=== PATIENT | female | born 1985 | race Two or more races ===

== ENCOUNTER 2019-05-22 04:40 | Inpatient (IN) | payer OTHER ==
[2019-05-22] MEDS ORDERED: DEXTROSE 5%-LACTATED RINGERS 1,000 ML IV SCH (05:30)
[2019-05-22] MEDS ORDERED: AMPICILLIN SODIUM 2 GM VIAL ONE (05:43)
[2019-05-22] MEDS ORDERED: AMPICILLIN - 2 GM in SODIUM CHLORIDE 100 ML IVPB ONE (05:43)
--- NOTE | 2019-05-22 05:50 | HP ---
Past Medical History - Admission Chief Complaint: Uterine contractions History of Present Illness: 33yo @ 38.4wks by LMP c/w sono here with uterine contractions that began at 3AM. Strong, regular. No VB/LOF. +FM Initially when presented, 75/3/-3, intact, rechecked after 1L IVF bolus, progressed to 100/5/-3, intact Preg c/b GBS positive, obesity PNC @ [address] History Source: Patient Limitations to Obtaining History: No Limitations - Past Medical History BACK TUFTER: No: Alzheimer's, CVA, Dementia, Migraine, Multiple Sclerosis, Peripheral Neuropathy, Parkinson's, Seizure, Syncope, TIA, Vertigo, Other Cardiovascular: No: AFIB, Aneurysm, Aortic Insufficiency, Aortic Stenosis, CAD, CHF, Deep Vein Thrombosis, HTN, Hyperlipdemia, NE, Mitral Insufficiency, Mitral Stenosis, Murmur, Pulmonary Hypertension, Other Pulmonary: No: Asthma, Bronchitis, Cancer, COPD, O2 Dependent, Pneumonia, Previously Intubated, Pulmonary Embolus, Pulmonary Fibrosis, Sleep Apnea, Other Gastrointestinal: No: Ascites, Cancer, Constipation, Crohn's Disease, Diverticulitis, Diverticulosis, Esophageal Varices, Gastritis, GERD, GI Bleed, Hemorrhoids, Hiatal Hernia, Inflamatory Bowel Disease, Irritable Bowel Disease, Pancreatitis, Peptic Ulcer Disease, Ulcerative Colitis, Other Hepatobiliary: No: Cirrhosis, Cholelithiasis, Cholecystitis, Choledocholithiasis , Hepatitis A, Hepatitis B, Hepatitis C, Other Renal/: No: Renal Failure, Renal Inusuff, BPH, Cancer, Hematuria, Hemodialysis , Neurogenic Bladder, Renal Calculi, UTI, Other ...: 3 ...Para: 1 ...Term: 1 ...: 0 ...Spon : 1 ...Induced : 0 ...LMP: 08/23/18 ... Weeks Gestation by Dates: 38.4 ...EDC by Dates: 05/30/19 ...EDC by Sono: 05/26/19 Heme/Onc: No: Anemia, B12 Deficiency, Bleeding Disorder, Cancer, Current Chemotherapy, Current Radiation Therapy, Hemochromatosis, Hypercoaguable State, Myeloproliferative Synd, Sickle Cell Disease, Sickle Cell Trait, Thrombocytopenia, Other Infectious Disease: No: AIDS, C-Diff, Herpes Zoster, HIV, MRSA, STD's, Tuberculosis, VREF, Other Psych: No: Addictions, Anxiety, Bipolar, Depression, Panic, Psychosis, Schizophrenia, Other Musculoskeletal: No: Bursitis, Chronic low back pain, Hemiparesis, Hemiplegia, Osteoarthritis, Paraplegia, Other - Past Surgical History Past Surgical History: Yes: None Hx Myomectomy: No Hx Transabdominal Cerclage: No - Smoking History Smoking history: Never smoked Have you smoked in the past 12 months: No - Social History Usual Living Arrangement: Yes: With Spouse ADL: Independent History of Recent Travel: No Home Medications - Allergies Allergies/Adverse Reactions: Allergies Allergy/AdvReac Type Severity Reaction Status Date / Time No Known Allergies Allergy Verified 05/20/19 13:55 - Home Medications Home Medications: Ambulatory Orders Ferrous Sulfate [Feosol] 325 mg PO DAILY 05/20/19 Pnv No.95/Ferrous Fum/Folic AC [ Vitamin Tablet] 1 each PO DAILY Review of Systems - Review of Systems Cardiovascular: denies: No Symptoms, Chest Pain, Edema, Palpitations, Shortness of Breath, Other Respiratory: denies: No Symptoms, Cough, Exercise Intolerance, Hemoptysis, Orthopnea, PND, Snoring, SOB, SOB on Exertion, Wheezing, Other Gastrointestinal: denies: No Symptoms, Abdominal Pain, Bloating, Constipation, Diarrhea, Dysphagia, Indigestion, Melena, Nausea, Rectal Bleeding, Vomiting, Vomiting Blood, Other Genitourinary: denies: No Symptoms, Burning, Discharge, Dysuria, Flank Pain, Frequency, Hematuria, Incontinence, Lesions, Menses, Pain, Testicular Mass, Testicular Pain, Testicular Swelling, Urgency, Vaginal Bleeding, Other Physical Exam - Maternity Vital Signs: Vital Signs Temperature 98.4 F 05/22/19 04:40 Pulse Rate 78 05/22/19 04:40 Respiratory Rate 20 05/22/19 04:40 Blood Pressure 146/75 05/22/19 04:40 O2 Sat by Pulse Oximetry (%) Constitutional: Yes: Well Nourished, No Distress, Calm Eyes: Yes: WNL, Conjunctiva Clear, EOM Intact HENT: Yes: WNL, Atraumatic, Normocephalic Neck: Yes: WNL, Supple, Trachea Midline Cardiovascular: Yes: WNL, Regular Rate and Rhythm Breast(s): Yes: WNL - Abdominal Exam/OB Number of Fetuses: Single Presentation: Vertex Contractions: Yes Regularity: Irregular Intensity: Mod/Strong Monitor Mode: External Category: I Accelerations: Non-Uniform Decelerations: None - Vaginal Exam/OB Vaginal Bleediing: No Speculum Exam: No Dilatation (cm): 5 Effacement (%): 100 Amniotic Membrane Status: Intact Presentation: Vertex/Position Station: -3 - Physical Exam Edema: No Problem List - Problems (1) Uterine contractions Code(s): [id number] - Assessment/Plan 33yo @ 38.4wks here in labor Admit to L&D IVFs, labs Epidural Amp for GBS AROM when GBS ppx sufficient Anticipate MARY Gavin MD
[2019-05-22 06:09] LABS: BASO % 0.3 % (0-2.0); EOS % 0.4 % (0-4.5); HEMATOCRIT 32.4 % (32.4-45.2); HEMOGLOBIN 10.9 GM/dL (10.7-15.3); LYMPH % 9.7 % (8-40); MCH 31.7 pg (25.7-33.7); MCHC 33.7 g/dl (32.0-36.0); MEAN CELL VOLUME 94.2 fl (80-96); MEAN PLT VOLUME 10.6 fl (7.5-11.1); MONO % 4.4 % (3.8-10.2); NEUT % 85.2 % (42.8-82.8); PLATELET COUNT 157 K/MM3 (134-434); RBC 3.44 M/mm3 (3.60-5.2); WHITE BLOOD COUNT 14.4 K/mm3 (4.0-10.0)
--- NOTE | 2019-05-22 06:23 | PN ---
Progress Note, Labor Vaginal Exam #1 Labor Exam Date: 05/22/19 Labor Exam Time: 06:22 Heart Rate (range): Cat I Dilatation: 6 Effacement (%): 100 Amniotic Membrane Status: Intact Presentation: Vertex/Position Station: -3 Remarks: Pt feeling rectal pressure Awaiting epidural Cont Amp for GBS
[2019-05-22 06:41] LABS: BLOOD UREA NITROGEN 3.9 mg/dL (7-18); CALCIUM 8.3 mg/dL (8.5-10.1); CREATININE 0.7 mg/dL (0.55-1.3); POTASSIUM 3.3 mmol/L (3.5-5.1)
[2019-05-22] MEDS ORDERED: FENTANYL/BUPIVACAINE/NS/PF - PCEA - 50 ML DISP.SYRIN EP ONE (06:55)
[2019-05-22] MEDS ORDERED: OXYTOCIN 20 UNITS in 0.9% NS 20 UNIT/1,000 ML INFUS.BAG IV ONE ×2 (07:00→09:31)
[2019-05-22] MEDS ORDERED: ELECTROLYTE-148 SOLN 1,000 ML IV SCH (07:00)
[2019-05-22 07:02] LABS: INR 1.07 (0.83-1.09); PROTHROMBIN TIME (PATIENT) 12.6 SEC (9.7-13.0)
[2019-05-22 07:05] LABS: ACTIVATED PTT 30.5 SECONDS (25.2-36.5)
[2019-05-22] MEDS ORDERED: NALOXONE HCL 0.4 MG/ML VIAL IVPUSH PRN (07:11)
[2019-05-22 07:12] VITALS: BMI 35.6
--- NOTE | 2019-05-22 07:15 | PN ---
Progress Note, Labor Vaginal Exam #2 Labor Exam Date: 05/22/19 Labor Exam Time: 07:15 Heart Rate (range): Cat I Dilatation: 10 Effacement (%): 100 Amniotic Membrane Status: Ruptured Presentation: Vertex/Position Station: +1 Remarks: Pt c/o increased pressure Complete Start pushing Anticipate MARY Gavin MD
[2019-05-22] MEDS ORDERED: LIDOCAINE HCL 1% PRESERVATIVE FREE - 30ML VIAL ONE (07:31)
[2019-05-22] MEDS: OXYTOCIN 20 UNITS in 0.9% NS 20 UNIT/1,000 ML INFUS.BAG IV SCH ×2 (07:40→09:40)
[2019-05-22] MEDS ORDERED: BENZOCAINE 20% 57 GM BOTTLE TP PRN (07:44)
[2019-05-22] MEDS ORDERED: BISACODYL 10 MG SUPP.RECT RC PRN (07:44)
[2019-05-22] MEDS ORDERED: WITCH HAZEL 50% (TUCKS) 40 PAD/JAR PAD TP PRN (07:44)
[2019-05-22] MEDS ORDERED: METHYLERGONOVINE MALEATE 0.2 MG/1 ML AMP IM PRN (07:44)
[2019-05-22] MEDS ORDERED: BENZOCAINE 28 GM HEMORRHOIDAL OINTMENT TP PRN (07:44)
--- NOTE | 2019-05-22 07:44 | PN ---
Delivery - Delivery Vaginal Delivery: Spontaneous Type of Anesthesia: Local Episiotomy/Laceration: Midline, 1st degree EBL (cc): 250 Delivery, Single - Stages of Labor Placenta: Yes: Spontaneous - Condition of Burn Out [employer] Consultant Present: No Gender: Male Position: Left, OA - 1 Minute Total Score: 9 5 Minutes Total Score: 9 - Feeding Plan Initial Plan: Elected not to breastfeed exclusively throughout hospitalization Remarks - Remarks Remarks: of VMI from JOLENE position over intact perineum. No nuchal. No meconium. Spontaneous delivery of anterior shoulder. placed on maternal abdomen. Cord clamped and cut. Infant handed off to staff. Apgars 9/9. Weight pending. Spontaneous delivery of intact placenta, 3VC. Fundus firm. Perineum inspected, 1st degree laceration repaired with 2-0 chromic after 10cc of 1% lidocaine injected. Hemostasis achieved. EBL 250ml. Mother and baby doing well/ Roxie Gavin MD
[2019-05-22] MEDS: FENTANYL/BUPIVACAINE/NS/PF - PCEA - 50 ML DISP.SYRIN EP SCH (07:57)
[2019-05-22] MEDS: IBUPROFEN 600 MG TABLET (FP) PO PRN ×3 (09:41→21:42)
[2019-05-22] MEDS: ACETAMINOPHEN 325 MG TABLET (FP) PO PRN ×3 (09:42→21:43)
[2019-05-22] MEDS ORDERED: IBUPROFEN 600 MG TABLET (FP) PO ONE (09:43)
[2019-05-22] MEDS ORDERED: ACETAMINOPHEN 325 MG TABLET (FP) ONE (09:43)
[2019-05-22] MEDS: PRENATAL VITAMINS W/ FOLIC ACID TABLET (FP) PO SCH (10:15)
[2019-05-22] MEDS: AMPICILLIN - 1 GM in SODIUM CHLORIDE 100 ML IVPB SCH ×3 (11:56→17:54)
[2019-05-23 07:43] LABS: BASO % 0.2 % (0-2.0); EOS % 0.5 % (0-4.5); HEMATOCRIT 30.1 % (32.4-45.2); HEMOGLOBIN 9.8 GM/dL (10.7-15.3); LYMPH % 11.9 % (8-40); MCH 31.1 pg (25.7-33.7); MCHC 32.6 g/dl (32.0-36.0); MEAN CELL VOLUME 95.4 fl (80-96); NEUT % 82.4 % (42.8-82.8); RBC 3.16 M/mm3 (3.60-5.2); RDW 13.9 % (11.6-15.6); WHITE BLOOD COUNT 16.3 K/mm3 (4.0-10.0)
[2019-05-23 08:41] LABS: PLATELET COUNT 160 K/MM3 (134-434)
--- NOTE | 2019-05-23 09:00 | PN ---
Post Progress Note Post Day: 1 Type of Delivery: Vital Signs: Vital Signs Temperature 98.1 F 05/23/19 06:00 Pulse Rate 69 05/23/19 06:00 Respiratory Rate 18 05/23/19 06:00 Blood Pressure 106/68 05/23/19 06:00 O2 Sat by Pulse Oximetry (%) 100 05/22/19 09:00 Uterus: Yes: Fundus below umbilicus Abdomen/GI: Yes: Abdomen soft, Passing flatus Lochia: Yes: Rubra Lochia, amount: Small Extremities: Yes: Calves non-tender Perineum: Yes: Laceration Activity: Ambulating - Labs Labs: CBC WBC 16.3 K/mm3 (4.0-10.0) H 05/23/19 06:20 RBC 3.16 M/mm3 (3.60-5.2) L 05/23/19 06:20 Hgb 9.8 GM/dL (10.7-15.3) L 05/23/19 06:20 Hct 30.1 % (32.4-45.2) L 05/23/19 06:20 MCV 95.4 fl (80-96) 05/23/19 06:20 MCH 31.1 pg (25.7-33.7) 05/23/19 06:20 MCHC 32.6 g/dl (32.0-36.0) 05/23/19 06:20 RDW 13.9 % (11.6-15.6) 05/23/19 06:20 Plt Count 160 K/MM3 (134-434) 05/23/19 06:20 MPV 11.0 fl (7.5-11.1) 05/23/19 06:20 Absolute Neuts (auto) 13.4 K/mm3 (1.5-8.0) H 05/23/19 06:20 Neutrophils % 82.4 % (42.8-82.8) 05/23/19 06:20 Lymphocytes % 11.9 % (8-40) D 05/23/19 06:20 Monocytes % 5.0 % (3.8-10.2) 05/23/19 06:20 Eosinophils % 0.5 % (0-4.5) 05/23/19 06:20 Basophils % 0.2 % (0-2.0) 05/23/19 06:20 Nucleated RBC % 0 % (0-0) 05/23/19 06:20 Problem List - Problems (1) Uterine contractions Code(s): [id number] - Assessment/Plan 33yo s/p , PPD#1 Routine PP care OOB. ambulate Labs reviewed Anticipate d/c to home PPD#2 Filiberto Gavin MD
[2019-05-23] MEDS: PRENATAL VITAMINS W/ FOLIC ACID TABLET (FP) PO SCH (10:26)
[2019-05-23] MEDS ORDERED: DIPHTH,PERTUSS(ACELL),TET 0.5 ML DISP.SYRIN IM ONE (12:00)
[2019-05-23] MEDS: FENTANYL/BUPIVACAINE/NS/PF - PCEA - 50 ML DISP.SYRIN EP SCH (15:31)
[2019-05-23] MEDS: ACETAMINOPHEN 325 MG TABLET (FP) PO PRN (16:23)
[2019-05-23] MEDS: IBUPROFEN 600 MG TABLET (FP) PO PRN (16:23)
[2019-05-23] MEDS ORDERED: SENNOSIDES/DOCUSATE COMBO (SENNA PLUS) TABLET (UD) PO PRN (22:00)
[2019-05-24] MEDS: IBUPROFEN 600 MG TABLET (FP) PO PRN (05:28)
[2019-05-24] MEDS: ACETAMINOPHEN 325 MG TABLET (FP) PO PRN (05:29)
[2019-05-24 08:43] VITALS: BP 126/71; PULSE 73; TEMP 98.5
[2019-05-24] MEDS: PRENATAL VITAMINS W/ FOLIC ACID TABLET (FP) PO SCH (09:23)
--- NOTE | 2019-05-24 10:35 | DS ---
Physical Examination Vital Signs: Vital Signs Temperature 98.5 F 05/24/19 08:00 Pulse Rate 73 05/24/19 08:00 Respiratory Rate 18 05/24/19 08:00 Blood Pressure 126/71 05/24/19 08:00 O2 Sat by Pulse Oximetry (%) 100 05/22/19 09:00 Constitutional: Yes: Well Nourished, No Distress, Calm Eyes: Yes: WNL, Conjunctiva Clear, EOM Intact HENT: Yes: WNL, Atraumatic, Normocephalic Neck: Yes: WNL, Supple, Trachea Midline Cardiovascular: Yes: WNL, Regular Rate and Rhythm Respiratory: Yes: WNL, Regular, CTA Bilaterally Gastrointestinal: Yes: WNL, Normal Bowel Sounds Musculoskeletal: Yes: WNL Extremities: Yes: WNL Edema: No Integumentary: Yes: WNL Neurological: Yes: WNL, Alert, Oriented ...Motor Strength: WNL Psychiatric: Yes: WNL Labs: CBC, BMP 05/23/19 06:20 05/22/19 05:50 Discharge Summary Reason For Visit: LABOR ASSESS Current Active Problems Uterine contractions (Acute) Procedures: Principal: Hospital Course: Patient presented in active labor She had an uncomplicated She met all milestones She was discharged home on PPD#2 Roxie Gavin MD Condition: Stable - Instructions Diet, Activity, Other Instructions: Regular Diet Follow up in 4-6 weeks for your visit HRH: [phone] If fever, pain, or heavy bleeding call M.D. Referrals: Evie Vaughn CNM [Certified Nurse [employer]] - Disposition: HOME - Home Medications Comprehensive Discharge Medication List: Ambulatory Orders Ferrous Sulfate [Feosol] 325 mg PO DAILY 05/20/19 Pnv No.95/Ferrous Fum/Folic AC [ Vitamin Tablet] 1 each PO DAILY Ibuprofen 600 mg PO Q6H PRN #30 tablet 05/22/19
== END 2019-05-24 15:45 | disposition home or self-care (01) | DRG 560 ==
LOC: JDEL 04:40 → JLDR 05:45 → J3W 10:15
PROVIDERS: ADMIT Obstetrics & Gynecology; ATTEND Obstetrics & Gynecology
PROC: 0HQ9XZZ Repair Perineum Skin, External Approach (ICD-10-PCS; principal; 2019-05-22)
PROC: 10E0XZZ Delivery of Products of Conception, External Approach (ICD-10-PCS; 2019-05-22)
DX: O99.214 Obesity complicating childbirth (principal); E66.9 Obesity, unspecified; O99.824 Streptococcus B carrier state complicating childbirth; O70.0 First degree perineal laceration during delivery; Z3A.38 38 weeks gestation of pregnancy; Z37.0 Single live birth
CPT/HCPCS: 36415; 59025; 59409; 71046-TC-FY; 80048; 85025; 85610; 85730; 86593; 86850; 86900; 86901; 90715